=== PATIENT | female | born 1975 | race Caucasian/White ===

== ENCOUNTER 2020-05-31 09:59 | Emergency (ER) | payer MEDICAID ==
[~2020-05-31] VITALS: Ht 175 cm; Wt 143.0 kg
[2020-05-31] MEDS ORDERED: LACTATED RINGERS 1,000 ML IV STA (10:22)
[2020-05-31] MEDS ORDERED: KETOROLAC 30 MG/ML VIAL IVP STA (10:22)
[2020-05-31 10:31] LABS: BASOPHILS % (AUTO) 0 % (0-10); EOSINOPHILS # (AUTO) 0.1 10^3/uL (0.0-0.3); EOSINOPHILS % (AUTO) 2 % (0-10); HEMATOCRIT 41 % (35-52); HEMOGLOBIN 13.3 g/dL (11.5-16.0); LYMPHOCYTES # (AUTO) 1.3 10^3/uL (1.0-4.0); LYMPHOCYTES % (AUTO) 22 % (12-44); MEAN CORPUSCULAR HEMOGLOBIN 30 pg (25-34); MEAN CORPUSCULAR HGB CONC 32 g/dL (32-36); MEAN CORPUSCULAR VOLUME 94 fL (80-99); MONOCYTES # (AUTO) 0.5 10^3/uL (0.0-1.0); MONOCYTES % (AUTO) 8 % (0-12); NEUTROPHILS # (AUTO) 3.8 10^3/uL (1.8-7.8); NEUTROPHILS % (AUTO) 67 % (42-75); PLATELET COUNT 162 10^3/uL (130-400); WHITE BLOOD COUNT 5.7 10^3/uL (4.3-11.0)
[2020-05-31] MEDS ORDERED: ASPI-1238 (10:47)
[2020-05-31] MEDS ORDERED: CELE-63 (10:47)
[2020-05-31] MEDS ORDERED: LISI1TAB26 (10:47)
[2020-05-31] MEDS ORDERED: DULO60CA59 (10:47)
[2020-05-31] MEDS ORDERED: TOPI100T11 (10:47)
[2020-05-31] MEDS ORDERED: OLAN10TA19 (10:47)
--- NOTE | 2020-05-31 10:53 | ED Cough/URI ---
General Chief Complaint: Cough/Cold/Flu Symptoms Stated Complaint: COVID+,SOB Nursing Triage Note: PT TO ROOM 09 PER W/C PT STATES TESTED COVID + YESTERDAY HAS BEEN SICK FOR ABOUT A WEEK, DENIES FEVER, HAS NO TASTE OR SMELL,NAUSEA, ESTRADA AND DIARRHEA. Sepsis Screen: No Definite Risk Source: patient Exam Limitations: no limitations History of Present Illness Date Seen by Provider: May 31, 2020 Time Seen by Provider: 10:04 Initial Comments Here with report of being short of breath, not feeling well with cough and headache. States that she has been sick for about a week. Tested positive for COVID-19 yesterday. Return from [place] yesterday. Reports history of lupus. States that her and another family were both have COVID-19. Reports that she has been sick with other things for about a month and a half and has completed both antibiotic and steroid treatments. Not currently on either. Has had nausea and diarrhea but no vomiting. States Tylenol is only helping a little bit. Timing/Duration: constant, week, getting worse Severity/Quality: moderate, dry cough Prior Episodes/Possible Cause: occasional episodes Modifying Factors: Worse With Activity, Worse With Coughing; Improves With Rest Associated Symptoms: cough, headache, muscle aches, shortness of breath, sore throat Allergies and Home Medications Allergies Coded Allergies: codeine (Verified Allergy, Unknown, 05/31/20) Patient Home Medication List Home Medication List Reviewed: Yes Review of Systems Review of Systems Constitutional: see HPI EENTM: nose congestion, throat pain Respiratory: see HPI Cardiovascular: no symptoms reported Gastrointestinal: see HPI Genitourinary: no symptoms reported Musculoskeletal: No back pain; muscle pain Skin: no symptoms reported Psychiatric/Neurological: No Symptoms Reported Past Ujlnqst-Slmaxx-Ahkujf Hx Past Med/Social Hx: Reviewed Nursing Past Med/Soc Hx Patient Social History Alcohol Use: Denies Use Recreational Drug Use: No Smoking Status: Never a Smoker Recent Foreign Travel: No Contact w/Someone Who Travel: No Recent Infectious Disease Expo: No Recent Hopitalizations: No Past Medical History Surgeries: Yes Hysterectomy, Orthopedic Respiratory: No Cardiac: Yes (ABLATION) Hypertension Neurological: Yes Headaches /Migraines [employer] WORK[employer] History: Hysterectomy Genitourinary: No Musculoskeletal: No Endocrine: Yes Lupus HEENT: No Cancer: No Psychosocial: Yes Depression Integumentary: No Blood Disorders: No Family Medical History Reviewed Nursing Family Hx No Pertinent Family Hx Physical Exam Vital Signs - First Documented 05/31/20 10:10 Temp 36.0 Pulse 80 Resp 34 B/P (MAP) 131/98 (109) Pulse Ox 99 Capillary Refill : Less Than 3 Seconds Height: '" Weight: lbs. oz. kg; 46.00 BMI Method: General Appearance: WD/WN, no apparent distress, obese HEENT: PERRL/EOMI, pharyngeal erythema Neck: full range of motion, supple Respiratory: lungs clear, normal breath sounds Cardiovascular: regular rate, rhythm, no murmur Gastrointestinal: non tender, soft Extremities: non-tender, normal inspection Neurologic/Psychiatric: alert, oriented x 3 Skin: normal color, warm/dry Progress/Results/Core Measures Suspected Sepsis Recent Fever Within 48 Hours: No Infection Criteria Present: Documented Infection New/Unexplained Altered Menta: No Sepsis Screen: No Definite Risk SIRS Temperature: Pulse: 80 Respiratory Rate: 34 Laboratory Tests 05/31/20 10:20: White Blood Count 5.7 Blood Pressure 131 /98 Mean: 109 Laboratory Tests 05/31/20 10:20: Creatinine 0.59L, Platelet Count 162, Total Bilirubin 0.8 Results/Orders Lab Results Laboratory Tests Test 05/31/20 10:20 Range/Units White Blood Count 5.7 4.3-11.0 10^3/uL Red Blood Count 4.40 3.80-5.11 10^6/uL Hemoglobin 13.3 11.5-16.0 g/dL Hematocrit 41 35-52 % Mean Corpuscular Volume 94 80-99 fL Mean Corpuscular Hemoglobin 30 25-34 pg Mean Corpuscular Hemoglobin Concent 32 32-36 g/dL Red Cell Distribution Width 13.1 10.0-14.5 % Platelet Count 162 130-400 10^3/uL Mean Platelet Volume 10.0 9.0-12.2 fL Immature Granulocyte % (Auto) 0 % Neutrophils (%) (Auto) 67 42-75 % Lymphocytes (%) (Auto) 22 12-44 % Monocytes (%) (Auto) 8 0-12 % Eosinophils (%) (Auto) 2 0-10 % Basophils (%) (Auto) 0 0-10 % Neutrophils # (Auto) 3.8 1.8-7.8 10^3/uL Lymphocytes # (Auto) 1.3 1.0-4.0 10^3/uL Monocytes # (Auto) 0.5 0.0-1.0 10^3/uL Eosinophils # (Auto) 0.1 0.0-0.3 10^3/uL Basophils # (Auto) 0.0 0.0-0.1 10^3/uL Immature Granulocyte # (Auto) 0.0 0.0-0.1 10^3/uL Sodium Level 135 135-145 MMOL/L Potassium Level 4.0 3.6-5.0 MMOL/L Chloride Level 103 98-107 MMOL/L Carbon Dioxide Level 25 21-32 MMOL/L Anion Gap 7 5-14 MMOL/L Blood Urea Nitrogen 6 L 7-18 MG/DL Creatinine 0.59 L 0.60-1.30 MG/DL Estimat Glomerular Filtration Rate > 60 BUN/Creatinine Ratio 10 Glucose Level 109 H 70-105 MG/DL Calcium Level 8.0 L 8.5-10.1 MG/DL Corrected Calcium 8.4 L 8.5-10.1 MG/DL Total Bilirubin 0.8 0.1-1.0 MG/DL Aspartate Amino Transf (AST/SGOT) 18 5-34 U/L Alanine Aminotransferase (ALT/SGPT) 21 0-55 U/L Alkaline Phosphatase 52 40-136 U/L C-Reactive Protein High Sensitivity 0.54 H 0.00-0.50 MG/DL Total Protein 6.3 L 6.4-8.2 GM/DL Albumin 3.5 3.2-4.5 GM/DL My Orders Orders - JORDI CABRERA MD Cbc With Automated Diff (05/31/20 10:22) Comprehensive Metabolic Panel (05/31/20 10:22) Hs C Reactive Protein (05/31/20 10:22) Lactated Ringers (Lr 1000 Ml Iv Solution (05/31/20 10:22) Ed Iv/Invasive Line Start (05/31/20 10:22) Ketorolac Injection (Toradol Injection) (05/31/20 10:22) Chest 1 View, Ap/Pa Only (05/31/20 10:22) Albuterol Inhaler (Ventolin Hfa) (05/31/20 11:16) Vital Signs/I&O 05/31/20 10:10 Temp 36.0 Pulse 80 Resp 34 B/P (MAP) 131/98 (109) Pulse Ox 99 Capillary Refill : Less Than 3 Seconds Blood Pressure Mean: 109 Progress Note : Progress Note Seen and evaluated. IV, labs, Toradol 30 mg IV and LR 1 L bolus ordered. Chest x-ray ordered. Monitor patient. 1115: A little better. Chest x-ray negative. Labs do not show any significant abnormalities. This was discussed with the patient. Outpatient recommendations given. Discharged home with return precautions. Patient verbalized understanding of instructions and agreement with plan. Diagnostic Imaging Diagonstic Imaging: Xray Plain Films/CT/US/NM/MRI: chest Comments NAME: OSWALDO MCKENZIE [facility] REC#: [id number] PT STATUS: REG ER : 1975 PHYSICIAN: JORDI CABRERA MD ADMIT DATE: 05/31/20/ER Draft Date of Exam:05/31/20 CHEST 1 VIEW, AP/PA ONLY INDICATION: Shortness of air, positive Covid. FINDINGS: The lungs are clear. No failure, effusion, or pneumothorax. IMPRESSION: No acute appearing abnormality. The report was faxed to Infection Control by [email or web address]@11:05 AM. Dictated on workstation # [id number] Dict: 05/31/20 1058 Trans: 05/31/20 1106 [id number] Interpreted by: ABHAY MEDINA Electronically signed by: Departure Impression Primary Impression: COVID-19 virus infection Disposition: 01 HOME, SELF-CARE Condition: Stable Departure-Patient Inst. Decision time for Depature: 11:18 Referrals: NO,LOCAL PHYSICIAN (PCP) Primary Care Physician MUKUL EVERETT APRN (Family) Primary Care Physician Patient Instructions: Coronavirus Disease 2019 (COVID-19) (DC) Add. Discharge Instructions: All discharge instructions reviewed with patient and/or family. Voiced understanding. Drink plenty of fluids and get plenty of rest. Your COVID-19 test was positive yesterday. You will need to remain in isolation for at least 10 days with day 0 yesterday and you will count for 10 days from there. You must be symptom improving and fever free in the last 3 days without fever reducing medicines to be out of isolation after the 10th day. The health department should contact you to direct timeframe as well and you will follow their directions. You need to notify your close contacts so that they may quarantine and this will include anybody that you are around for 10 minutes within 6 feet 2 days prior to onset of symptoms. Monitor your oxygen saturation while resting. Currently it is 98 percent. If that starts to decline to the low 90s and certainly below 90, please return immediately to the emergency department for further evaluation. You may purchase a pulse oximeter at the pharmacy or download an oxygen saturation monitor application for your smart phone. You may take ibuprofen 600 mg every 8 hours as needed for fever or pain. You may take Tylenol/acetaminophen 1000 mg every 8 hours as needed for fever or pain. Return for worse pain, fever, vomiting, weakness, breathing problems or other concerns as needed. JORDI CABRERA MD May 31, 2020 10:53
[2020-05-31 10:55] LABS: ALBUMIN 3.5 GM/DL (3.2-4.5); CHLORIDE 103 MMOL/L (98-107); SODIUM 135 MMOL/L (135-145)
[2020-05-31 10:57] LABS: GLUCOSE 109 MG/DL (70-105); TOTAL PROTEIN 6.3 GM/DL (6.4-8.2)
[2020-05-31 10:59] LABS: BILIRUBIN,TOTAL 0.8 MG/DL (0.1-1.0); CARBON DIOXIDE 25 MMOL/L (21-32)
[2020-05-31 11:01] LABS: ALKALINE PHOSPHATASE 52 U/L (40-136); CREATININE SERUM 0.59 MG/DL (0.60-1.30); GFR ESTIMATED > 60
[2020-05-31 11:02] LABS: BUN/CREATININE RATIO 10
[2020-05-31 11:04] LABS: ALANINE AMINOTRANSFERASE 21 U/L (0-55)
--- NOTE | 2020-05-31 11:06 | Diagnostic Imaging Report ---
INDICATION: Shortness of air, positive Covid. FINDINGS: The lungs are clear. No failure, effusion, or pneumothorax. IMPRESSION: No acute appearing abnormality. The report was faxed to Infection Control by [email or web address]@11:05 AM. Dictated by: Dictated on workstation # [id number]
[2020-05-31] MEDS ORDERED: RT-ALBUTEROL INHALER HFA (VENTOLIN HFA) 18 GM IH STA (11:16)
[2020-05-31 11:41] VITALS: BP 128/88
== END 2020-05-31 11:41 | disposition home or self-care (01) ==
LOC: ER 10:05
DX: U07.1 COVID-19 (principal); E66.9 Obesity, unspecified; Z68.42 Body mass index [BMI] 45.0-49.9, adult; Z88.5 Allergy status to narcotic agent
CPT/HCPCS: 36415; 71045; 80053; 85025; 86141